=== PATIENT | female | born 1985 ===

== ENCOUNTER 2022-06-12 15:42 | Outpatient (CLI) | payer OTHER, SELFPAY ==
--- NOTE | ~2022-06-12 | US_ITS ---
EXAMINATION: US OB <= 14 weeks fetus DATE: 06/12/2022 16:03 INDICATION: First trimester viability assessment TECHNIQUE: Real-time pelvic transabdominal and transvaginal ultrasound was performed. COMPARISON: None. FINDINGS: The uterus measures 10.1 x 4.8 x 6.7 cm. There is an intrauterine gestational sac. There i s a questionable yolk sac. No definite pole is identified. No cardiac activity is seen. T he mean sac diameter is 4.2 cm. The right ovary measures 2.6 x 2.6 x 3.7 cm. The left ovary measures 2.6 x 1.7 x 2.0 cm. There is nor mal vascular flow in the ovaries. There is no free fluid in the pelvis. IMPRESSION: 1. 4.2 cm intrauterine gestational sac without visible viable , consistent with fa ilure. Reviewed, dictated and finalized at location A. IMPRESSION: 1. 4.2 cm intrauterine gestational sac without visible viable , consis tent with failure.
== END 2022-06-12 15:43 ==
LOC: MICIMG 15:45
PROVIDERS: PCP Physician Assistant; Visit Provider Obstetrics & Gynecology
DX: Z34.81 Encounter for supervision of other normal pregnancy, first trimester (principal)
CPT/HCPCS: 76801